=== PATIENT | male | born 1975 | race Two or more races ===

== ENCOUNTER 2023-08-04 09:12 | Emergency (ER) | payer MEDICAID ==
[~2023-08-04] VITALS: Ht 177.8 cm; Wt 85.7 kg
[2023-08-04 09:12] VITALS: O2SAT 98
[2023-08-04] MEDS ORDERED: EPINEPHRINE (1:10,000) SYRINGE 1 MG/10 ML DISP.SYRIN IV ONE (09:13)
[2023-08-04] MEDS ORDERED: AMIODARONE 150 MG/3 ML VIAL IV ONE (09:13)
[2023-08-04] MEDS ORDERED: SODIUM BICARBONATE SYR 50 MEQ/50 ML DISP.SYRIN IV ONE (09:13)
[2023-08-04] MEDS ORDERED: CALCIUM CHLORIDE 1,000 MG/10 ML DISP.SYRIN IV ONE (09:13)
[2023-08-04 13:20] VITALS: BP 0/0; TEMP 97.6
== END 2023-08-04 13:24 ==
LOC: ER 09:12
DX: I46.9 Cardiac arrest, cause unspecified (principal)
CPT/HCPCS: J0171; J0282; J3490